=== PATIENT | male | born 1965 | race Caucasian/White ===

== ENCOUNTER 2024-01-15 12:29 | Outpatient (AMB) | payer OTHER, SELFPAY ==
--- NOTE | 2024-01-15 12:57 | HO.SPINEOV ---
Vital Signs 01/15/24 12:59 Height 6 ft Weight 182 lb BMI 24.7 Intake Visit Reasons: Low back pain Intake Note: Mr. Guerrero is here today c/o low back pain. Dowel Maker Required: No Physical Exam Vital Signs: BMI result Body Mass Index 24.7 Assessment & Plan Assessment & Plan (1) Neuroforaminal stenosis of lumbosacral spine: Code(s): M48.07 - Spinal stenosis, lumbosacral region Category: Medical (2) Lumbar radiculopathy, acute: Code(s): M54.16 - Radiculopathy, lumbar region Category: Medical Plan Dear colleague On 01/15/2024 I saw Mr. Adam Guerrero, self refer patient with a chief complaint of progressive severe left leg pain. HPI: This 58-year-old previously very active gentleman developed progressive severe left leg pain. The symptoms started around August of 2022 with left back and hip pain that over time became more severe and frequent. The frequency of the sciatica events increased and was associated with lifting heavier loads and overhead work. Currently, the pain is constantly present but better with sitting or laying down. Walking and standing increases the symptoms. The pain is rated at 7 to 8/10 and extends from the hip to his foot and rates and from a burning to a numbness sensation. He now notices left foot numbness from the ball and big toe to the 4th toe. The following conservative treatment options were tried without success antiinflammatories, tylenol, physician guided home exercise plan and cortisone shots. He saw another orthopedic surgeon who propose to do an L5-S1 lumbar fusion. He comes to see me for 2nd opinion. PMH: Positive for partial meniscectomy of the left and right knee in 2018 and 2022. Medications: Anti-inflammatory drugs p.r.n.. Allergies: NKDA Social history: . Superintendent Production of [employer] Physical Exam: Pleasant male. He is able to come out of a chair without difficulties. Straight leg raise is positive with pain radiating down his left leg. Sensory exam shows diminished sensation of his left big toe. No motor deficits. Reflexes are symmetrically intact. Radiological Studies: MRI done at [facility] on 12/06/2023 shows multilevel lumbar degenerative disc disease but more importantly there is severe left L5 foraminal stenosis. No signs of instability. Impression/Plan: This 58-year-old male is suffering from left lumbar radiculopathy/unilateral neurogenic claudication due to severe left L5 neuroforaminal stenosis. I reviewed the imaging in detail with the patient and his spouse and in my opinion a simple L5 foraminotomy is the best treatment option. I do not see an indication for a fusion. The patient wants to proceed and he is scheduled for 01/30/2024. [place] and [place] therefore staying in a hotel on 01/29/2024 and will present to the hospital early in the morning to have pre testing done by anesthesia. The surgery will be done in day surgery. The procedure and expected postoperative course was discussed. Thank you for allowing me to participate in your patients care. total time spent was 50 minutes in counseling ,coordination of plan, personal review of imaging, surgical decision making and subsequent plan Conor Ledbetter MD, PhD Spine Fellowship Trained Neurosurgeon Director, [facility] Coding Level of Care Code New Pt Level 5 (92353) Diagnoses Neuroforaminal stenosis of lumbosacral spine M48.07 Lumbar radiculopathy, acute M54.16
[2024-01-15 12:59] VITALS: BMI 24.7
--- OUTSIDE RECORDS SUMMARY | 2024-01-21 18:45 | XMS_ITS | Continuity of Care Document ---
Author Organization [facility] Address [address] [place] [address] Phone Care Team Providers Care Investigator Cash Shortage Name Role Phone Kati CHANDLER, FACS, Antonio RODRIGUEZ Unavailable Unavailable Procedures Procedure Date Office/Outpatient Visit, [facility] Comprehensive Audiometry Evaluation Tympanometry Advance Directives Directive Yes / No Effective Date File Name No Information Encounters Encounter Description Practice Location Reason(s) For Visit Diagnoses Date Provider Providers Copied on Encounter [facility], [address] [place] [address], [address] [place] [address], tel:[phone] Kati No Information Kati Alvarez. [address] [place] [address], [address] [place] [address], . tel:[phone] Referring Provider: Pino Almaguer MD, [address], [place], [address] . tel:[phone] Office/Outpat ient Visit, [facility], [address] [place] [address], [address] [place] [address], tel:[phone] Kati hearing loss (chief complaint) Sensorineural hearing loss (SNHL) of both ears Kati Alvarez. [address] [place] [address], [id number], . tel:[phone] Referring Provider: Pino Almaguer MD, [address], [place], [address] . tel:[phone] [facility], [address] [place] [address], [address] [place] [address], [place] tel:[phone] Audiology Sensorineural hearing loss (SNHL) of both ears Kati Alvarez. [address] [place] [address], [place], [place], [id number], . tel:[phone] Family History Family Member Type Diagnosis Age At Onset No Information Payers Payer name Insurance type Covered republican ID Authoriza tion(s) No Information Social History Type Description Quantity Date Captured Comments Sex Male Smoking Status No Information Chief Complaint And Reason For Visit No Information Reason For Referral Reason For Referral No Information History Of Present Illness Encounter Date Complaint History Of Prese nt Illness hearing loss The patient pres ents in the ears bilaterally with muffled hearing loss that began 1 year ago. The hearing loss is moderate and is worsening. Location includes ears bilaterally. The symptoms may be related to exposure to loud environments. Patient has a history of ear infections. Prior surgeries do not include ear surgery. The patient denies nausea, otalgia, vertigo and vomiting. Additional information: Pt is a general ii farmworker. Functional Status Date Functional Assessmen t No Information Instructions Date Instruction Additional Infor mation No Information Assessments Type Assessment Date No Information Patient Care Teams Name Effective Dates (start - stop) Status Members No Information
== END 2024-01-15 13:55 | disposition home or self-care (01) ==
PROVIDERS: Visit Provider Neurological Surgery
DX: M48.07 Spinal stenosis, lumbosacral region (principal); M54.16 Radiculopathy, lumbar region
CPT/HCPCS: 99205

== ENCOUNTER → 2024-01-15 12:29 | Outpatient (BNVA) | payer OTHER, SELFPAY | PROVIDERS: Visit Provider Neurological Surgery ==